=== PATIENT | female | born 1965 | race Caucasian/White ===

== ENCOUNTER → 2017-05-07 | Outpatient (CLI) | payer OTHER ==
[~2017-05-07] VITALS: Ht 170.2 cm; Wt 81.7 kg
[~2017-05-07] MED LIST: ALLERGY RELIEF1 EAC1 PO; BIOTIN10 MG PO; CENTRUM SILVER1 EAC3 PO; MAGNESIUM100 MG PO; PROCARDIA XL30 MG PO; SYNTHROID100 MCG PO; TOVIAZ8 MG PO; TRAZODONE HCL50 MG PO; [UNRECOGNIZED DRUG - OTHER] PO
== END | disposition home or self-care (01) ==
LOC: AMB 09:49
PROC: 0DJD8ZZ Inspection of Lower Intestinal Tract, Via Natural or Artificial Opening Endoscopic (ICD-10-PCS; principal; 2017-05-07)
DX: Z12.11 Encounter for screening for malignant neoplasm of colon (principal); K59.09 Other constipation; Z88.0 Allergy status to penicillin; E03.9 Hypothyroidism, unspecified; I73.00 Raynaud's syndrome without gangrene
CPT/HCPCS: J2250; J3010